=== PATIENT | female | born 1995 | race Caucasian/White ===

== ENCOUNTER 2023-01-26 17:15 | Inpatient (IN) | payer OTHER ==
[~2023-01-26] VITALS: Ht 172.7 cm; Wt 78.5 kg
[2023-01-26] MEDS ORDERED: PRENATABS RX T1 EACH PO (18:11)
[2023-01-26] MEDS ORDERED: FE C TABLET1 EACH PO (18:11)
[2023-01-30] MEDS ORDERED: IBUPROFEN800 MG PO (14:33)
[2023-01-30] MEDS ORDERED: DOCUSATE SODIU100 MG PO (14:33)
[2023-01-30] MEDS ORDERED: OXYC1TAB9 PO (14:33)
== END 2023-01-30 14:45 | disposition home or self-care (01) | DRG 788 ==
LOC: LDR 17:15 → OB/GYN 01-28 02:29
PROVIDERS: Student in an Organized Health Care Education/Training Program; ADMIT Obstetrics & Gynecology; ATTEND Obstetrics & Gynecology
PROC: 3E0P7VZ Introduction of Hormone into Female Reproductive, Via Natural or Artificial Opening (ICD-10-PCS; 2023-01-26)
PROC: 4A1HXCZ Monitoring of Products of Conception, Cardiac Rate, External Approach (ICD-10-PCS; 2023-01-26)
PROC: 3E033VJ Introduction of Other Hormone into Peripheral Vein, Percutaneous Approach (ICD-10-PCS; 2023-01-27)
PROC: 10D00Z1 Extraction of Products of Conception, Low, Open Approach (ICD-10-PCS; principal; 2023-01-27 23:15)
DX: O14.04 Mild to moderate pre-eclampsia, complicating childbirth (principal); O77.8 Labor and delivery complicated by other evidence of fetal stress; O36.8130 Decreased fetal movements, third trimester, not applicable or unspecified; Z3A.37 37 weeks gestation of pregnancy; Z37.0 Single live birth; Z20.822 Contact with and (suspected) exposure to COVID-19